=== PATIENT | female | born 1970 | race American Indian/Alaskan Native ===

== ENCOUNTER 2020-09-07 14:42 | Outpatient (CLI) | payer BC ==
--- NOTE | 2020-09-08 08:55 | Ultrasound Report ---
LEFT DIAGNOSTIC MAMMOGRAM with targeted left breast ultrasound INDICATION: Follow-up evaluation of finding noted previously in the left breast on screening mammogra m. COMPARISON: 08/18/2020, 01/10/2018, 10/20/2010. FINDINGS: Additional mammographic views including spot images of the left superior breast were perfor med to evaluate the site of a previously noted finding seen in this region on the recent screening ma mmogram. There is a persistent circumscribed oval low-density mass located in the left superior breas t. A targeted ultrasound will be performed for further evaluation. A targeted ultrasound of the left superior breast shows a circumscribed hypoechoic posterior acoustic enhancing lesion measuring 10 x 9 x 5 mm at the 12:00 position, 2 cm from the nipple. No definite in ternal vascular flow could be demonstrated. The appearance is favored to represent a mildly debris-fi lled complicated cyst. IMPRESSION: Left breast lesion at the 12:00 position is probably benign, suspected to represent a debris-filled o r complicated cyst. A six-month follow-up left breast ultrasound is recommended to assess stability. BI-RADS Category 3: Probably Benign. A "normal" or negative report should not discourage follow up or biopsy of a clinically significant f inding. A written summary of these findings will be mailed to the patient. FURTHER INFORMATION: According to the [employer], yearly mammograms are recommend ed starting at age 40 and continuing as long as a woman is in good health. Breast MRI is recommended for women with an approximately 20-25% or greater lifetime risk of breast cancer, including women wi th a strong family history of breast or ovarian cancer and women who have been treated for Hodgkin's disease. Signer Name: Chris Skelton MD Signed: 09/08/2020 8:55 AM Workstation Name: [id number]
== END 2020-09-07 14:43 | disposition home or self-care (01) ==
LOC: SPVWC 14:42
PROVIDERS: ATTEND Surgery
DX: N64.89 Other specified disorders of breast (principal)